=== PATIENT | female | born 1985 | race Hispanic/Latino ===

== ENCOUNTER → 2019-11-16 | Outpatient (CLI) | payer OTHER ==
--- NOTE | 2019-11-16 12:43 | Diagnostic Imaging Report ---
EXAM: KNEE RIGHT THREE VIEWS DATE: 11/16/2019 12:00 AM INDICATION: Knee pain COMPARISON: None FINDINGS: There is no evidence for acute fracture or dislocation. Bony mineralization is within normal limits. No focal lytic or blastic abnormality is identified. The joint spaces are preserved. The surrounding soft tissues are unremarkable without evidence for radiopaque foreign body or significant joint effusion. IMPRESSION: No acute radiographic abnormality identified within the right knee. Signed by: Dr. José Miguel Felix MD on 11/16/2019 12:39 PM
== END ==
LOC: RAD 11:37
PROVIDERS: ATTEND Family Medicine
DX: M25.561 Pain in right knee (principal)